=== PATIENT | male | born 1970 | race Two or more races ===

== ENCOUNTER → 2024-05-06 | Outpatient (CLI) | payer BC, MEDICAID, SELFPAY ==
[2024-05-06 08:47] LABS: Cardiac Risk Estimate 4.1 RATIO (4.0-6.7); Cholesterol 155 mg/dL (132-200); HDL Cholesterol 38 mg/dL (40-60); LDL Cholesterol,Calculated 96 mg/dL (0-130); Triglycerides 105 mg/dL (30-150)
== END | disposition home or self-care (01) ==
PROVIDERS: PCP Nurse Practitioner Family; Referring Provider Nurse Practitioner Family; Visit Provider Nurse Practitioner Family
DX: E78.5 Hyperlipidemia, unspecified (principal)
CPT/HCPCS: 36415; 80061

== ENCOUNTER → 2024-11-19 | Outpatient (CLI) | payer BC, MEDICAID, SELFPAY ==
[2024-11-19 08:50] LABS: Cardiac Risk Estimate 3.7 RATIO (4.0-6.7); Cholesterol 140 mg/dL (132-200); HDL Cholesterol 38 mg/dL (40-60); LDL Cholesterol,Calculated 80 mg/dL (0-130); Triglycerides 108 mg/dL (30-150)
== END | disposition home or self-care (01) ==
LOC: COPL 07:36
PROVIDERS: PCP Nurse Practitioner Family; Referring Provider Nurse Practitioner Family; Visit Provider Nurse Practitioner Family
DX: E78.5 Hyperlipidemia, unspecified (principal)
CPT/HCPCS: 36415; 80061

== ENCOUNTER → 2025-02-26 | Outpatient (CLI) | payer BC, MEDICAID, SELFPAY ==
[2025-02-26 08:42] LABS: Basophils # (Auto) 0.0 Thou/mm3 (0.0-0.2); Basophils % (Auto) 1 % (0-2.5); Eosinophils # (Auto) 0.1 Thou/mm3 (0.0-0.5); Eosinophils % (Auto) 2 % (0-10); Hematocrit 45.7 % (41.0-53.0); Hemoglobin 15.6 g/dL (13.5-16.0); Immature Granulocytes Auto 0.01 Thou/mm3 (0.00-0.00); Lymphocytes # (Auto) 2.0 Thou/mm3 (1.0-4.8); Lymphocytes % (Auto) 38 % (10-50); Mean Corpuscular HGB Conc 34.1 g/dl (31.0-37.0); Mean Corpuscular Hemoglobin 30.6 pg (25.0-35.0); Mean Corpuscular Volume 90 fL (80-100); Monocytes # (Auto) 0.4 Thou/mm3 (0.0-0.8); Monocytes % (Auto) 7 % (0-12); Neutrophils # (Auto) 2.8 Thou/mm3 (1.8-7.7); Neutrophils % (Auto) 53 % (37-80); Nucleated Red Blood Cell # 0.00 Thou/mm3 (0.00-0.00); Nucleated Red Blood Cell % 0 /100 WBC (0); Platelet Count 224 Thou/mm3 (140-440); RDW Standard Deviation 39.4 fL (35.1-43.9); Red Blood Count 5.09 Miln/mm3 (4.50-5.90); White Blood Count 5.4 Thou/mm3 (3.8-10.6)
[2025-02-26 08:47] LABS: Alanine Aminotransferase 26 U/L (10-49); Albumin, Serum 4.3 gm/dL (3.5-5.0); Albumin/Globulin Ratio 1.9 (1.2-2.2); Alkaline Phosphatase 69 U/L (46-116); Anion Gap 7 (7-16); Aspartate Amino Transferase 24 U/L (0-34); BUN/Creatinine Ratio 12 Ratio (12-20); Bilirubin,Total 0.7 mg/dL (0.3-1.2); Blood Urea Nitrogen 12 mg/dL (9-23); Calcium 9.2 mg/dL (8.3-10.6); Calcium (Corrected) 9.2 mg/dL (8.5-10.1); Carbon Dioxide 31.2 mMol/L (20.0-31.0); Chloride 105 mMol/L (98-107); Creatinine (Component) 1.0 mg/dL (0.6-1.3); Globulin 2.3 gm/dL (2.3-3.5); Glucose 95 mg/dL (74-106); Osmolality,Calculated 284 (275-295); Potassium 4.8 mMol/L (3.4-5.1); Sodium 143 mMol/L (136-145); Total Protein 6.6 gm/dL (5.7-8.2); eGFR > 60 See Note
[2025-03-02 06:40] LABS: Fecal Globin Result NOT DETECTED (NOT DETECTED)
[2025-03-04 06:51] LABS: Helicobacter pylori Ag, Stool* NOT DETECTED (NOT DETECTED)
== END | disposition home or self-care (01) ==
LOC: COPL 06:44
PROVIDERS: PCP Nurse Practitioner Family; Referring Provider Nurse Practitioner Family; Visit Provider Nurse Practitioner Family
DX: Z00.00 Encounter for general adult medical examination without abnormal findings (principal); R10.9 Unspecified abdominal pain; R14.0 Abdominal distension (gaseous); R19.7 Diarrhea, unspecified; Z13.29 Encounter for screening for other suspected endocrine disorder
CPT/HCPCS: 36415; 80053; 82274; 85025; 87338; G0328